=== PATIENT | female | born 1995 | race Caucasian/White ===

== ENCOUNTER 2020-03-03 15:57 | Emergency (ER) | payer OTHER ==
[2020-03-03 16:13] VITALS: BP 107/67; PULSE 92; BMI 25.8
[2020-03-03 16:14] VITALS: TEMP 97.8
--- OUTSIDE RECORDS SUMMARY | 2020-03-03 16:33 | XMS ---
:1995 [facility] Support Name Relationship Address Phone MARK ANTHONY Unavailable Unavailable Unavailable TASHA WEATHERS MOTHER [address] [place] [id number] Re-disclosure Warning The records that you are about to access may contain information from federally- assisted alcohol or drug abuse programs. If such information is present, then the following federally mandated warning applies: This information has been disclosed to you from records protected by federal confidentiality rules (42 CFR part 2). The federal rules prohibit you from making any further disclosure of this information unless further disclosure is expressly permitted by the written consent of the person to whom it pertains or as otherwise permitted by 42 CFR part 2. A general authorization for the release of medical or other information is NOT sufficient for this purpose. The Federal rules restrict any use of the information to criminally investigate or prosecute any alcohol or drug abuse patient.The records that you are about to access may contain highly sensitive health information, the redisclosure of which is protected by Article 27-F of the [facility] Public Health law. If you continue you may haveaccess to information: Regarding HIV / AIDS; Provided by facilities licensed or operated by the [facility] Office of Mental Health; or Provided by the [facility] Office for People With Developmental Disabilities. If such information is present, then the following [facility] mandated warning applies: This information has been disclosed to you from confidential records which are protected by state law. State law prohibits you from making any further disclosure of this information without the specific written consent of the person to whom it pertains, or as otherwise permitted by law. Any unauthorized further disclosure in violation of state law may result in a fine or senior care sentence or both. A general authorization for the release of medical or other information is NOT sufficient authorization for further disclosure. 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
[2020-03-03 18:21] LABS: BASO % 0.5 % (0-2.0); EOS % 1.7 % (0-4.5); HEMATOCRIT 35.6 % (32.4-45.2); HEMOGLOBIN 12.2 GM/dL (10.7-15.3); LYMPH % 34.3 % (8-40); MCH 30.4 pg (25.7-33.7); MCHC 34.4 g/dl (32.0-36.0); MEAN CELL VOLUME 88.3 fl (80-96); MEAN PLT VOLUME 8.6 fl (7.5-11.1); MONO % 6.7 % (3.8-10.2); NEUT % 56.8 % (42.8-82.8); PLATELET COUNT 256 K/MM3 (134-434); RBC 4.03 M/mm3 (3.60-5.2); RDW 13.1 % (11.6-15.6); WHITE BLOOD COUNT 6.8 K/mm3 (4.0-10.0)
[2020-03-03 18:28] LABS: PH,URINE 6.5 (5.0-8.0); URINE APPEARANCE CLEAR; URINE BILIRUBIN NEGATIVE (NEGATIVE); URINE COLOR YELLOW; URINE GLUCOSE (UA) NEGATIVE (NEGATIVE); URINE KETONE NEGATIVE (NEGATIVE); URINE LEUK ESTERASE NEGATIVE (NEGATIVE); URINE NITRITE NEGATIVE (NEGATIVE); URINE PROTEIN NEGATIVE (NEGATIVE); URINE UROBILINOGEN 0.2 mg/dL (0.2-1.0)
[2020-03-03 18:35] LABS: HCG,QUALITATIVE URINE Negative
[2020-03-03 18:46] LABS: BILIRUBIN,TOTAL 0.2 mg/dL (0.2-1); BLOOD UREA NITROGEN 9.8 mg/dL (7-18); CALCIUM 8.7 mg/dL (8.5-10.1); CREATININE 0.7 mg/dL (0.55-1.3); TOT PROT 7.2 g/dl (6.4-8.2)
--- NOTE | 2020-03-03 18:49 | PDOC ---
History of Present Illness - General Chief Complaint: Vaginal Bleeding Stated Complaint: MENSES ISSUE Time Seen by Provider: 03/03/20 16:25 History Source: Patient Exam Limitations: No Limitations - History of Present Illness Initial Comments: 03/03/20 18:51 24-year-old female history of anxiety otherwise healthy presents complaining of heavy vaginal bleeding x3 days. Reports soaking pads and tampons every hour, feeling weak and tired. Passing large blood clots. Patient called her cell biology scientist today and was advised to present to the ED. Denies chest pain, shortness of breath, near syncope, low back pain, abdominal pain or urinary symptoms. Denies history of . Reports last month she also had heavy menses. ROS: as above PE: GENERAL: well-appearing, NAD HEAD: NCAT EYES: Pupils equal, round and reactive to light, sclera anicteric, conjunctiva clear ENT: pharynx: no erythema, no exudate, uvula midline NECK: supple CHEST: nontender RESP: clear, no w/r/r CARDIO: rrr, no m/g/r ABD: +BS, soft, nontender, non distended PELVIC: os closed, no cmt, no adnexal ttp, no clots noted in vault, approximately 5 cc of blood noted in vault BACK: no midline spinal ttp, no CVAT EXTREMITIES: Normal range of motion, no edema NEUROLOGICAL: Normal speech, normal gait SKIN: Warm, Dry Is this a multiple visit Asthma Patient?: No Past History - Medical History Allergies/Adverse Reactions: Allergies Allergy/AdvReac Type Severity Reaction Status Date / Time No Known Allergies Allergy Verified 03/03/20 16:08 COPD: No - Reproductive History Is Patient Now?: No - Psycho-Social/Smoking History Smoking History: Never smoked Have you smoked in the past 12 months: No - Substance Abuse Hx (Audit-C & DAST Scrn) How often the patient has a drink containing alcohol: Monthly or less Number of drinks the patient has on a typical day: 1 or 2 How often the patient has six or more drinks on one occasion: Never Score: In Men: 4 or > Positive; In Women: 3 or > Positive: 1 Screen Result (Pos requires Nsg. Audit-10AR): Negative In the last yr the pt used illegal drug/Rx for NonMed reason: No Score: Yes response is considered Positive: 0 Screen Result (Positive result requires Nsg. DAST-10): Negative *Physical Exam - Vital Signs Last Vital Signs Temp Pulse Resp BP Pulse Ox 97.8 F 92 H 18 107/67 100 03/03/20 16:08 03/03/20 16:08 03/03/20 16:08 03/03/20 16:08 03/03/20 16:08 ED Treatment Course - LABORATORY CBC & Chemistry Diagram: 03/03/20 17:50 03/03/20 17:50 - ADDITIONAL ORDERS Additional order review: Laboratory Results 03/03/20 03/03/20 17:50 17:50 Sodium 141 Potassium 4.0 Chloride 108 H Carbon Dioxide 28 Anion Gap 5 L BUN 9.8 Creatinine 0.7 Est GFR (CKD-EPI)AfAm 140.55 Est GFR (CKD-EPI)NonAf 121.27 Random Glucose 80 Calcium 8.7 Total Bilirubin 0.2 AST 17 ALT 17 Alkaline Phosphatase 71 Total Protein 7.2 Albumin 4.0 Urine Color Yellow Urine Appearance Clear Urine pH 6.5 Ur Specific [place] 1.017 Urine Protein Negative Urine Glucose (UA) Negative Urine Ketones Negative Urine Blood Negative Urine Nitrite Negative Urine Bilirubin Negative Urine Urobilinogen 0.2 Ur Leukocyte Esterase Negative Urine HCG, Qual Negative 03/03/20 17:50 RBC 4.03 MCV 88.3 MCHC 34.4 RDW 13.1 MPV 8.6 Neutrophils % 56.8 Lymphocytes % 34.3 Monocytes % 6.7 Eosinophils % 1.7 Basophils % 0.5 - RADIOLOGY Radiology Studies Ordered: Category Date Time Status TRANSVAGINAL ULTRASOUND US [US] Stat Ultrasound 03/03/20 16:58 Taken Medical Decision Making - Medical Decision Making 03/03/20 18:54 24-year-old female history of anxiety otherwise healthy presents complaining of heavy vaginal bleeding x3 days. Reports soaking pads and tampons every hour, feeling weak and tired. Passing large blood clots. Patient called her gyne cologist today and was advised to present to the ED. Denies chest pain, shortness of breath, near syncope, low back pain, abdominal pain or urinary symptoms. Denies history of . Reports last month she also had heavy menses. labs, UA urine transvaginal US re assess 03/03/20 19:37 Urine negative Labs and UA reviewed, copies provided to patient Transvaginal ultrasounds unremarkable, copy provided to patient Patient agrees to follow-up with her OCCUP THERAPIST within 1 week Return precautions discussed Discharge - Discharge Information Problems reviewed: Yes Clinical Impression/Diagnosis: Vaginal bleeding Condition: Stable Disposition: HOME - Admission No - Follow up/Referral Referrals: Adarsh Ojeda MD [Primary Care Provider] - - Patient Discharge Instructions Additional Instructions: Follow-up with your cell biology scientist within 1 week Return to ED if you develop shortness of breath, chest pain, palpitations, dizziness, abdominal pain, pelvic pain, heavier vaginal bleeding or any other concerns - Post Discharge Activity
== END 2020-03-03 20:02 | disposition home or self-care (01) ==
LOC: JER 15:57
DX: N93.9 Abnormal uterine and vaginal bleeding, unspecified (principal)
CPT/HCPCS: 36415; 76830-TC; 80053; 81003; 84703; 85025; 87086; 99284-25